=== PATIENT | female | born 1965 | race Caucasian/White ===

== ENCOUNTER → 2020-12-02 | Outpatient (CLI) | payer BC ==
[~2020-12-02] MED LIST: BENICAR20 MG PO; COQ-10 PO; CRESTOR10 MG PO; DAILY VALUE1 EACH PO; DITROPAN 5 MG TA5 MG PO; DOCUSATE SODIU250 MG PO; EPINEPHRIN0.3 MG/0.3 INJ; ESTRADIOL1 EAC4 TOP; HYDROCODONE-AC1 EACH PO; IBUPROFEN600 MG PO; MAGNESIUM500 MG PO; NEXIUM20 M1 PO; NEXIUM40 MG PO; PROGESTERONE100 MG PO; SINGULAIR10 MG PO; TESTOSTERONE TOP; VITAMIN B12 PO; VITAMIN C500 M4 PO; VITAMIN D3125 MCG PO; VOLTREN XR 100100 MG PO; XYZAL5 MG PO
[2020-12-02 11:41] LABS: HEMOGLOBIN 14.9 gm/dl (12.3-15.3); RED BLOOD COUNT 4.78 M/UL (4.00-5.10); WHITE BLOOD COUNT 6.1 K/UL (4.5-11.0)
[2020-12-02 12:04] LABS: BUN/CREATININE RATIO 14 (0-10)
== END ==
LOC: OPSV2 10:26
PROVIDERS: Obstetrics & Gynecology
DX: Z01.818 Encounter for other preprocedural examination (principal); N81.9 Female genital prolapse, unspecified; R94.31 Abnormal electrocardiogram [ECG] [EKG]
CPT/HCPCS: 71046; 80053; 81001; 85025; 93005

== ENCOUNTER 2020-12-17 07:22 | Day surgery (SDC) | payer BC ==
[~2020-12-17] VITALS: Ht 154.9 cm; Wt 67.6 kg
[~2020-12-17 07:22] MED LIST changes: -DITROPAN 5 MG TA5 MG PO; -DOCUSATE SODIU250 MG PO; -HYDROCODONE-AC1 EACH PO; -IBUPROFEN600 MG PO
[2020-12-17] MEDS ORDERED: DOCUSATE SODIU250 MG PO ×2 (07:47→12:33)
[2020-12-17] MEDS ORDERED: IBUPROFEN600 MG PO ×2 (07:47→12:33)
[2020-12-17] MEDS ORDERED: DITROPAN 5 MG TA5 MG PO ×2 (07:47→12:33)
[2020-12-17] MEDS ORDERED: HYDROCODONE-AC1 EACH PO ×2 (07:47→12:33)
== END 2020-12-18 11:14 | disposition home or self-care (01) ==
LOC: OR 07:22 → MED SURG 4 13:47 → OR 12-18 11:14
DX: N81.6 Rectocele (principal); N73.6 Female pelvic peritoneal adhesions (postinfective); N83.331 Acquired atrophy of right ovary and fallopian tube; N83.332 Acquired atrophy of left ovary and fallopian tube; N39.46 Mixed incontinence; R19.8 Other specified symptoms and signs involving the digestive system and abdomen; M19.90 Unspecified osteoarthritis, unspecified site; M06.9 Rheumatoid arthritis, unspecified; I10 Essential (primary) hypertension; E78.00 Pure hypercholesterolemia, unspecified; Z96.652 Presence of left artificial knee joint; Z90.89 Acquired absence of other organs; Z90.710 Acquired absence of both cervix and uterus; Z20.822 Contact with and (suspected) exposure to COVID-19
CPT/HCPCS: C1769; J0690; J1100; J1170; J1885; J2250; J2405; J2704; J3010; J7050; J7120